=== PATIENT | female | born 1925 | race Two or more races ===

== ENCOUNTER 2016-08-10 19:45 | Inpatient (IN) | payer MEDICARE, OTHER ==
[~2016-08-10] VITALS: Ht 157.5 cm; Wt 57.6 kg
[2016-08-10 20:21] LABS: BASOPHILS # (AUTO) 0.1 /CMM (0.0-0.2); BASOPHILS % (AUTO) 1.1 % (0.0-2.0); DIFF TOTAL % 100 %; EOSINOPHILS # (AUTO) 0.2 /CMM (0.0-0.7); EOSINOPHILS % (AUTO) 1.9 % (0.0-6.0); HEMATOCRIT 37 % (33-45); HEMOGLOBIN 12.4 g/dL (11.5-14.8); LYMPHOCYTES # (AUTO) 2.8 /CMM (0.8-4.8); LYMPHOCYTES % (AUTO) 26.5 % (20.0-44.0); MEAN CORPUSCULAR HEMOGLOBIN 30 PG (26.0-33.0); MEAN CORPUSCULAR HGB CONC 33 g/dl (31.0-36.0); MEAN CORPUSCULAR VOLUME 90 fL (82-100); MONOCYTES # (AUTO) 0.7 /CMM (0.1-1.30); MONOCYTES % (AUTO) 6.6 % (2.0-12.0); NEUTROPHILS # (AUTO) 6.7 /CMM (1.8-8.9); NEUTROPHILS % (AUTO) 63.9 % (43.0-81.0); PLATELET COUNT (AUTO) 318 /CMM (150-450); RED BLOOD CELL COUNT(AUTO) 4.15 MIL/uL (4.0-5.2); WHITE BLOOD COUNT (AUTO) 10.5 K/uL (4.3-11.0)
[2016-08-10 20:30] LABS: KETONES,URINE 15 (NEGATIVE); LEUKOCYTE ESTERASE ,URINE Small (NEGATIVE)
[2016-08-10 20:31] LABS: ANION GAP 13 (5-14); CALCIUM, SERUM 9.3 mg/dL (8.5-10.1); CARBON DIOXIDE 27 mmol/L (21-32); CHLORIDE 106 mmol/L (98-107); CREATININE 1.1 mg/dL (0.6-1.3); GLUCOSE 134 mg/dL (74-106); POTASSIUM 4.3 mmol/L (3.5-5.1); SODIUM SERUM 141 mmol/L (136-145); UREA NITROGEN, BLOOD 22 mg/dL (7-18)
[2016-08-10 20:33] LABS: ADD UA MICROSCOPIC YES
[2016-08-10 20:35] LABS: INR 0.94 (0.87-1.13); PROTHROMBIN TIME 9.9 SECS (9.5-12.7)
[2016-08-10 20:37] LABS: ALANINE AMINOTRANSFERASE 11 U/L (12-78); ALBUMIN 3.8 g/dL (3.4-5.0); ASPARTATE AMINOTRANSFERASE 16 U/L (15-37); BILIRUBIN,DIRECT 0.1 mg/dL (0.0-0.2); BILIRUBIN,TOTAL 0.2 mg/dL (0.2-1.0); INDIRECT BILIRUBIN 0.1 mg/dL (0.0-1.1); TOTAL PROTEIN, SERUM 7.5 g/dL (6.4-8.2)
[2016-08-10 20:38] LABS: CANNABINOID, URINE NEGATIVE (NEGATIVE); PHENCYCLIDINE SCREEN,URINE NEGATIVE (NEGATIVE); RBC,URINE 0-2 /HPF (0-2)
[2016-08-10 20:38] LABS: TROPONIN I 0.025 ng/mL (0.00-0.056)
[2016-08-10 20:39] LABS: ADD URINE CULTURE YES
[2016-08-10 20:50] LABS: THYROID STIMULATING HORMONE 0.363 uIU/mL (0.358-3.74)
[2016-08-10] MEDS ORDERED: CEFTRIAXONE 1GM BAG (ER ONLY) 1 GM/50 ML PIGGYBACK IV ONE (21:30)
[2016-08-10 21:50] VITALS: BP 154/72
[2016-08-10] MEDS ORDERED: IV SET PRIMARY 1 EA INFUS.SET MC ONE (21:55)
[2016-08-10] MEDS ORDERED: CEFTRIAXONE 1GM BAG (ER ONLY) 50 ML IV ONE (21:55)
[2016-08-10] MEDS ORDERED: MAGNESIUM HYDROXIDE 30 ML UDC PO PRN (22:00)
[2016-08-10] MEDS ORDERED: ONDANSETRON HCL/PF 4 MG/2 ML VIAL IVP PRN (22:00)
[2016-08-10] MEDS ORDERED: ACETAMINOPHEN 325 MG TABLET PO PRN (22:00)
[2016-08-10] MEDS ORDERED: Z GUARD REMEDY 2 OZ OINT TP PRN (22:00)
[2016-08-10] MEDS ORDERED: MAG HYDROX/AL HYDROX/SIMETH 30 ML UDC PO PRN (22:00)
[2016-08-10 23:10] VITALS: BP 154/72
[2016-08-11] VITALS (7 sets, daily range): BP systolic 140–199; BP diastolic 58–94
[2016-08-11] MEDS ORDERED: IV NS 0.9% 1,000 ML ONE (00:02)
[2016-08-11] MEDS ORDERED: IV SET PRIMARY PUMP SET 1 EA INFUS.SET MC ONE (00:02)
[2016-08-11] MEDS: IV NS 0.9% 1,000 ML IV PRN (00:09)
[2016-08-11] MEDS ORDERED: DILTIAZEM PO (05:33)
[2016-08-11] MEDS ORDERED: METF500T4 PO (05:33)
[2016-08-11 07:12] LABS: PHOSPHORUS 2.9 mg/dL (2.5-4.9); POTASSIUM 4.2 mmol/L (3.5-5.1)
[2016-08-11 07:19] LABS: BASOPHILS # (AUTO) 0.1 /CMM (0.0-0.2); BASOPHILS % (AUTO) 0.6 % (0.0-2.0); DIFF TOTAL % 100 %; EOSINOPHILS # (AUTO) 0.3 /CMM (0.0-0.7); EOSINOPHILS % (AUTO) 2.4 % (0.0-6.0); HEMATOCRIT 38 % (33-45); HEMOGLOBIN 12.4 g/dL (11.5-14.8); LYMPHOCYTES # (AUTO) 3.9 /CMM (0.8-4.8); MEAN CORPUSCULAR HEMOGLOBIN 30 PG (26.0-33.0); MEAN CORPUSCULAR HGB CONC 33 g/dl (31.0-36.0); MEAN CORPUSCULAR VOLUME 91 fL (82-100); MONOCYTES # (AUTO) 0.7 /CMM (0.1-1.30); MONOCYTES % (AUTO) 6.1 % (2.0-12.0); NEUTROPHILS # (AUTO) 7.1 /CMM (1.8-8.9); NEUTROPHILS % (AUTO) 58.9 % (43.0-81.0); PLATELET COUNT (AUTO) 311 /CMM (150-450); RED BLOOD CELL COUNT(AUTO) 4.16 MIL/uL (4.0-5.2); WHITE BLOOD COUNT (AUTO) 12.1 K/uL (4.3-11.0)
[2016-08-11] MEDS ORDERED: LEVO88TA5 PO (07:41)
[2016-08-11] MEDS ORDERED: CALC-20 PO (07:41)
[2016-08-11] MEDS ORDERED: BISA10SU8 RC (07:41)
[2016-08-11] MEDS ORDERED: FOLI1TAB16 PO (07:41)
[2016-08-11] MEDS ORDERED: GUAI118S20 PO (08:02)
[2016-08-11] MEDS ORDERED: FERR325T28 PO (08:02)
[2016-08-11] MEDS ORDERED: DOCU-106 PO ×2 (08:04→08:06)
[2016-08-11] MEDS ORDERED: BISA10SU15 RC (08:23)
[2016-08-11] MEDS ORDERED: [UNRECOGNIZED DRUG - CODE] IM (08:23)
[2016-08-11] MEDS ORDERED: CHOL100044 PO (08:35)
[2016-08-11] MEDS ORDERED: GUAI-671 PO (08:35)
[2016-08-11] MEDS ORDERED: DILT300C57 PO (08:35)
[2016-08-11] MEDS ORDERED: IBUP-1955 PO (08:35)
[2016-08-11] MEDS ORDERED: PYRI50TA74 PO (08:35)
[2016-08-11] MEDS ORDERED: FLUT9.9S NS (08:35)
[2016-08-11] MEDS: PANTOPRAZOLE 40 MG TABLET.DR PO SCH (10:09)
[2016-08-11] MEDS: ENOXAPARIN SODIUM 30 MG/0.3 ML DISP.SYRIN SQ SCH (10:09)
[2016-08-11] MEDS: ASPIRIN EC 81 MG TABLET.DR PO SCH (18:30)
[2016-08-11] MEDS ORDERED: SECONDARY IV SET 1 EA INFUS.SET MC ONE (20:39)
[2016-08-11] MEDS: CEFTRIAXONE 1 G in IV D5W 50 ML IV SCH (20:44)
[2016-08-11] MEDS ORDERED: DILTIAZEM HCL CD 300 MG PO SCH (21:30)
[2016-08-11] MEDS ORDERED: DILTIAZEM HCL CD 240 MG PO ONE (21:45)
[2016-08-11] MEDS: DILTIAZEM HCL CD 240 MG PO SCH (21:54)
[2016-08-12] MEDS: TEMAZEPAM 15 MG CAPSULE PO PRN (01:13)
[2016-08-12 08:00] VITALS: BP 136/57
[2016-08-12] MEDS: ASPIRIN EC 81 MG TABLET.DR PO SCH (11:16)
[2016-08-12] MEDS: PANTOPRAZOLE 40 MG TABLET.DR PO SCH (11:17)
[2016-08-12] MEDS: DILTIAZEM HCL CD 240 MG PO SCH (11:17)
[2016-08-12] MEDS: ENOXAPARIN SODIUM 30 MG/0.3 ML DISP.SYRIN SQ SCH (11:24)
[2016-08-12] MEDS ORDERED: BISACODYL SUPP (10 MG) 10 MG/SUPP.RECT SUPP.RECT RC PRN (11:30)
[2016-08-12] MEDS ORDERED: CYANOCOBALAMIN 1000 MCG IM SCH (11:30)
[2016-08-12 16:00] VITALS: BP 142/56
[2016-08-12] MEDS: CALCIUM CARB 600MG /VIT D 1 EACH TABLET PO SCH (16:09)
[2016-08-12] MEDS: FERROUS SULFATE (325 MG) 325 MG/TAB TABLET PO SCH (16:09)
[2016-08-12] MEDS: DOCUSATE SODIUM 100 MG CAPSULE PO SCH (16:17)
[2016-08-12 20:00] VITALS: BP 121/46
[2016-08-12] MEDS: CEFTRIAXONE 1 G in IV D5W 50 ML IV SCH (20:01)
[2016-08-13] MEDS: IV NS 0.9% 1,000 ML IV PRN (04:57)
[2016-08-13] MEDS: LEVOTHYROXINE SODIUM 88 MCG TABLET PO SCH ×2 (06:41→09:08)
[2016-08-13] MEDS: PANTOPRAZOLE 40 MG TABLET.DR PO SCH ×2 (06:41→09:08)
[2016-08-13 07:09] LABS: BASOPHILS # (AUTO) 0.1 /CMM (0.0-0.2); BASOPHILS % (AUTO) 0.3 % (0.0-2.0); DIFF TOTAL % 100 %; EOSINOPHILS # (AUTO) 0.1 /CMM (0.0-0.7); EOSINOPHILS % (AUTO) 0.7 % (0.0-6.0); HEMATOCRIT 34 % (33-45); HEMOGLOBIN 11.3 g/dL (11.5-14.8); LYMPHOCYTES # (AUTO) 3.1 /CMM (0.8-4.8); LYMPHOCYTES % (AUTO) 15.6 % (20.0-44.0); MEAN CORPUSCULAR HEMOGLOBIN 30 PG (26.0-33.0); MEAN CORPUSCULAR HGB CONC 33 g/dl (31.0-36.0); MEAN CORPUSCULAR VOLUME 91 fL (82-100); MONOCYTES # (AUTO) 1.1 /CMM (0.1-1.30); MONOCYTES % (AUTO) 5.4 % (2.0-12.0); NEUTROPHILS # (AUTO) 15.3 /CMM (1.8-8.9); PLATELET COUNT (AUTO) 299 /CMM (150-450); RED BLOOD CELL COUNT(AUTO) 3.77 MIL/uL (4.0-5.2); WHITE BLOOD COUNT (AUTO) 19.6 K/uL (4.3-11.0)
[2016-08-13 07:41] LABS: CALCIUM, SERUM 8.4 mg/dL (8.5-10.1); CREATININE 0.9 mg/dL (0.6-1.3); POTASSIUM 4.1 mmol/L (3.5-5.1)
[2016-08-13 08:00] VITALS: BP 124/52
[2016-08-13] MEDS: DOCUSATE SODIUM 100 MG CAPSULE PO SCH ×2 (09:00→16:56)
[2016-08-13] MEDS: ENOXAPARIN SODIUM 30 MG/0.3 ML DISP.SYRIN SQ SCH (09:00)
[2016-08-13] MEDS: PYRIDOXINE HCL 50 MG TABLET PO SCH (09:06)
[2016-08-13] MEDS: FERROUS SULFATE (325 MG) 325 MG/TAB TABLET PO SCH ×2 (09:08→16:57)
[2016-08-13] MEDS: METFORMIN 500 MG TABLET PO SCH (09:08)
[2016-08-13] MEDS: ASPIRIN EC 81 MG TABLET.DR PO SCH (09:08)
[2016-08-13] MEDS: CHOLECALCIFEROL 1,000 UNIT TABLET (VIT D3) PO SCH (09:09)
[2016-08-13] MEDS: FOLIC ACID 1 MG TABLET PO SCH (09:09)
[2016-08-13] MEDS: CALCIUM CARB 600MG /VIT D 1 EACH TABLET PO SCH ×2 (09:09→16:57)
[2016-08-13] MEDS: AZITHROMYCIN 250 MG TABLET PO SCH (12:51)
[2016-08-13] MEDS: DILTIAZEM HCL CD 300 MG PO SCH ×2 (13:18→15:40)
[2016-08-13] MEDS: FLUTICASONE PROPIONATE 16 GM BOTTLE NS SCH (15:41)
[2016-08-13 16:00] VITALS: BP 119/70
[2016-08-13 20:00] VITALS: BP 123/56
[2016-08-13] MEDS: CEFTRIAXONE 1 G in IV D5W 50 ML IV SCH (21:33)
[2016-08-13] MEDS: TEMAZEPAM 15 MG CAPSULE PO PRN (21:38)
[2016-08-14 08:00] VITALS: BP 120/62
[2016-08-14 08:01] LABS: BASOPHILS # (AUTO) 0.1 /CMM (0.0-0.2); BASOPHILS % (AUTO) 0.5 % (0.0-2.0); DIFF TOTAL % 100 %; EOSINOPHILS # (AUTO) 0.3 /CMM (0.0-0.7); EOSINOPHILS % (AUTO) 2.2 % (0.0-6.0); HEMATOCRIT 37 % (33-45); LYMPHOCYTES # (AUTO) 2.3 /CMM (0.8-4.8); LYMPHOCYTES % (AUTO) 16.1 % (20.0-44.0); MEAN CORPUSCULAR HEMOGLOBIN 30 PG (26.0-33.0); MEAN CORPUSCULAR HGB CONC 33 g/dl (31.0-36.0); MEAN CORPUSCULAR VOLUME 92 fL (82-100); MONOCYTES # (AUTO) 0.7 /CMM (0.1-1.30); MONOCYTES % (AUTO) 4.8 % (2.0-12.0); NEUTROPHILS # (AUTO) 10.8 /CMM (1.8-8.9); NEUTROPHILS % (AUTO) 76.4 % (43.0-81.0); PLATELET COUNT (AUTO) 277 /CMM (150-450); RED BLOOD CELL COUNT(AUTO) 3.99 MIL/uL (4.0-5.2); WHITE BLOOD COUNT (AUTO) 14.2 K/uL (4.3-11.0)
[2016-08-14 08:11] LABS: CALCIUM, SERUM 8.7 mg/dL (8.5-10.1); CREATININE 1.1 mg/dL (0.6-1.3); PHOSPHORUS 2.6 mg/dL (2.5-4.9); POTASSIUM 4.1 mmol/L (3.5-5.1)
[2016-08-14] MEDS: CHOLECALCIFEROL 1,000 UNIT TABLET (VIT D3) PO SCH (08:27)
[2016-08-14] MEDS: FOLIC ACID 1 MG TABLET PO SCH (08:27)
[2016-08-14] MEDS: CALCIUM CARB 600MG /VIT D 1 EACH TABLET PO SCH ×2 (08:27→16:18)
[2016-08-14] MEDS: DOCUSATE SODIUM 100 MG CAPSULE PO SCH ×2 (08:27→16:19)
[2016-08-14] MEDS: ASPIRIN EC 81 MG TABLET.DR PO SCH (08:28)
[2016-08-14] MEDS: METFORMIN 500 MG TABLET PO SCH (08:28)
[2016-08-14] MEDS: PYRIDOXINE HCL 50 MG TABLET PO SCH (08:28)
[2016-08-14] MEDS: ENOXAPARIN SODIUM 30 MG/0.3 ML DISP.SYRIN SQ SCH (08:32)
[2016-08-14] MEDS: FLUTICASONE PROPIONATE 16 GM BOTTLE NS SCH (08:35)
[2016-08-14] MEDS: FERROUS SULFATE (325 MG) 325 MG/TAB TABLET PO SCH ×2 (09:08→16:18)
[2016-08-14] MEDS: AZITHROMYCIN 250 MG TABLET PO SCH (12:22)
[2016-08-14] MEDS ORDERED: AZIT250T PO (14:59)
[2016-08-14 16:00] VITALS: BP 126/72
[2016-08-14] MEDS ORDERED: LACTOBACILLUS RHAMNOSUS GG 1 EACH CAP.SPRINK PO SCH (17:00)
== END 2016-08-14 22:05 | DRG 193 ==
LOC: ER 19:49 → TELE 21:36 → MED 08-11 08:55
PROVIDERS: ADMIT Nurse Practitioner Acute Care; ATTEND Nurse Practitioner Acute Care
DX: J15.9 Unspecified bacterial pneumonia (principal); G92 Toxic encephalopathy; N39.0 Urinary tract infection, site not specified; I10 Essential (primary) hypertension; B96.89 Other specified bacterial agents as the cause of diseases classified elsewhere; E03.9 Hypothyroidism, unspecified; E11.9 Type 2 diabetes mellitus without complications; F02.80 Dementia in other diseases classified elsewhere, unspecified severity, without behavioral disturbance, psychotic disturbance, mood disturbance, and anxiety; G30.9 Alzheimer's disease, unspecified; R32 Unspecified urinary incontinence; Z87.440 Personal history of urinary (tract) infections; Z87.01 Personal history of pneumonia (recurrent); Z91.81 History of falling; E86.0 Dehydration; M19.90 Unspecified osteoarthritis, unspecified site
CPT/HCPCS: 36415; 70450-TC; 71010-TC; 80048-TC; 80061-TC; 80076-TC; 80305; 81000-TC; 82140-TC; 83605-TC; 83735-TC; 84100-TC; 84443-TC; 84484-TC; 85025-TC; 85730-TC; 87040-TC; 87081-TC; 87086-TC; 97001-TC; 97003-TC; 97116-TC; 97530-TC; A4606; G0480; J0696; J1650; J7030; J7060; Z7610

== ENCOUNTER 2017-02-14 14:22 | Outpatient (CLI) | payer MEDICARE, OTHER ==
[~2017-02-14 14:22] MED LIST: AZIT250T PO; BISA10SU15 RC; CALC-20 PO; DILT300C57 PO; DOCU-106 PO; FERR325T28 PO; FLUT9.9S NS; FOLI1TAB16 PO; LEVO88TA5 PO; METF500T4 PO; PYRI50TA74 PO; [UNRECOGNIZED DRUG - CODE] IM
== END 2017-02-14 23:59 | disposition home or self-care (01) ==
LOC: RAD 14:22
PROVIDERS: ATTEND Family Medicine
DX: J98.11 Atelectasis (principal); I70.0 Atherosclerosis of aorta
CPT/HCPCS: 71020-TC